=== PATIENT | female | born 1980 | race Caucasian/White ===

== ENCOUNTER 2018-09-14 08:40 | Emergency (ER) | payer MEDICAID, OTHER ==
[~2018-09-14] VITALS: Ht 172.7 cm; Wt 155.6 kg
--- NOTE | 2018-09-14 09:15 | NUR ---
seen and evaluated by Dr Lorenzo , observed pt for 30 mins and no further seizure noted so far, [facility]d back to prison
[2018-09-14 09:19] VITALS: BP 110/76
== END 2018-09-14 09:20 ==
LOC: ER 08:43
DX: R56.9 Unspecified convulsions (principal); J45.909 Unspecified asthma, uncomplicated; F31.9 Bipolar disorder, unspecified; Z98.890 Other specified postprocedural states; Z90.710 Acquired absence of both cervix and uterus
CPT/HCPCS: 99285; A4606; Z7610

== ENCOUNTER 2019-06-02 15:47 | Emergency (ER) | payer OTHER ==
[~2019-06-02] VITALS: Ht 172.7 cm; Wt 145.1 kg
--- NOTE | 2019-06-02 16:47 | NUR ---
PATIENT BIBRA39 FROM [facility] FOR WITNESSED SEIZURE. A/O X 4, VERBALLY RESPONSIVE. NO ACUTE DISTRESS. DENIES ANY PAIN OR DISCOMFORT. AMBULATORY WITH STEADY GAIT. RESTING COMFORTABLY ON BED
[2019-06-02 16:51] LABS: BASOPHILS % (AUTO) 0.4 % (0.0-2.0); EOSINOPHILS % (AUTO) 1.2 % (0.0-6.0); HEMATOCRIT 39 % (33-45); HEMOGLOBIN 13.1 g/dL (11.5-14.8); LYMPHOCYTES # (AUTO) 1.3 /CMM (0.8-4.8); LYMPHOCYTES % (AUTO) 14.4 % (20.0-44.0); MEAN CORPUSCULAR HGB CONC 34 g/dl (31.0-36.0); MEAN CORPUSCULAR VOLUME 89 fL (82-100); MONOCYTES # (AUTO) 0.6 /CMM (0.1-1.30); MONOCYTES % (AUTO) 7.1 % (2.0-12.0); NEUTROPHILS # (AUTO) 6.7 /CMM (1.8-8.9); NEUTROPHILS % (AUTO) 76.9 % (43.0-81.0); PLATELET COUNT (AUTO) 243 /CMM (150-450); RED BLOOD CELL COUNT(AUTO) 4.37 MIL/uL (4.0-5.2); WHITE BLOOD COUNT (AUTO) 8.8 K/uL (4.3-11.0)
[2019-06-02 17:02] LABS: CALCIUM, SERUM 8.4 mg/dL (8.5-10.1); CREATININE 0.8 mg/dL (0.6-1.3); POTASSIUM 3.5 mmol/L (3.5-5.1)
[2019-06-02 17:07] LABS: ALBUMIN 3.5 g/dL (3.4-5.0); BILIRUBIN,DIRECT 0.1 mg/dL (0.0-0.2); BILIRUBIN,TOTAL 0.1 mg/dL (0.2-1.0)
--- NOTE | 2019-06-02 17:31 | NUR ---
URINE COLLECTED AND SENT TO LAB
[2019-06-02 17:40] LABS: APPEARANCE,URINE Clear (CLEAR); BILIRUBIN,URINE Negative (NEGATIVE); BLOOD, URINE Negative Ery/uL (NEGATIVE); COLOR,URINE Yellow (YELLOW); KETONES,URINE Negative (NEGATIVE); LEUKOCYTE ESTERASE ,URINE Negative (NEGATIVE); NITRITE, URINE Negative (NEGATIVE); PROTEIN,URINE Negative (NEGATIVE); UGLUCOSE Negative (NEGATIVE); UROBILINOGEN,URINE 0.2 EU/dL (0.2)
[2019-06-02] MEDS: IV NS 0.9% 1,000 ML BAG IV ONE (17:52)
[2019-06-02] MEDS ORDERED: ONDANSETRON HCL/PF 4 MG/2 ML VIAL ONE (18:04)
[2019-06-02] MEDS: ONDANSETRON HCL/PF 4 MG/2 ML VIAL IV ONE (18:12)
--- NOTE | 2019-06-02 18:19 | NUR ---
PATIENT CLEARED BY DR YOUNG FOR DISCHARGE.
--- NOTE | 2019-06-02 18:35 | NUR ---
DISCHARGE INSTRUCTIONS AND EDUCATION PROVIDED TO PATIENT AND VERBALIZED UNDERSTANDING. IV REMOVED, TIP INTACT, PRESSURE DRESSING PLACED. PATIENT LEFT UNIT AMBULATORY IN STABLE CONDITION. ACCOMPANIED BY 2 [employer] OFFICERS. AWARE OF DISCHARGE
[2019-06-02 18:37] VITALS: BP 129/77
== END 2019-06-02 18:37 ==
LOC: ER 15:51
DX: G40.909 Epilepsy, unspecified, not intractable, without status epilepticus (principal); E86.0 Dehydration; J45.909 Unspecified asthma, uncomplicated; F31.9 Bipolar disorder, unspecified; E66.9 Obesity, unspecified; Z98.890 Other specified postprocedural states; Z90.710 Acquired absence of both cervix and uterus
CPT/HCPCS: 36415; 80048; 80076; 81001; 84703; 85025; 96361; 96374; 99283; J2405; J7030; 81000-TC

== ENCOUNTER 2019-12-11 11:36 | Emergency (ER) | payer MEDICAID, OTHER ==
[~2019-12-11] VITALS: Ht 172.7 cm; Wt 147.4 kg
--- NOTE | 2019-12-11 11:51 | NUR ---
"Flu like symptoms/ Cough/congestion x1mo NOT better. Homeless". To ER bed 11, hooked to monitor, provided w mask, Dr Hicks at bedside
[2019-12-11] MEDS: ALBUTEROL FS 2.5 MG/3 ML VIAL.NEB NEB ONE (12:34)
[2019-12-11] MEDS: IPRATROPIUM NEB FS 0.5 MG/2.5 ML AMPUL.NEB NEB ONE (12:34)
[2019-12-11] MEDS ORDERED: IPRATROPIUM NEB FS 0.5 MG/2.5 ML AMPUL.NEB ONE (12:38)
[2019-12-11] MEDS ORDERED: ALBUTEROL FS 2.5 MG/3 ML VIAL.NEB ONE (12:38)
[2019-12-11] MEDS ORDERED: GUAIFENESIN/D-METHORPHAN HB 5 ML UDC ONE (13:09)
[2019-12-11] MEDS: CODEINE/PROMETHAZINE HCL 5 ML UDC PO ONE (13:11)
[2019-12-11] MEDS: GUAIFENESIN/D-METHORPHAN HB 5 ML UDC PO ONE (13:13)
--- NOTE | 2019-12-11 13:13 | NUR ---
PROVIDED W FOOD TRAY, TOLERATING PO WELL.
--- NOTE | 2019-12-11 13:35 | NUR ---
Patient given written and verbal discharge instructions. Patient verbalizes understanding of instructions. Patient is ambulatory with steady gait. Refuses offer of [facility] placement. Patient given list of available shelters in surrounding area. Patient discharged in proper clothing. Signed homeless waiver form, Name band removed. All belongings with the patient.
[2019-12-11 13:36] VITALS: BP 139/90
== END 2019-12-11 13:36 | disposition home or self-care (01) ==
LOC: ER 11:45
DX: J12.9 Viral pneumonia, unspecified (principal); J45.909 Unspecified asthma, uncomplicated; F31.9 Bipolar disorder, unspecified; Z90.710 Acquired absence of both cervix and uterus; Z98.890 Other specified postprocedural states
CPT/HCPCS: 71045-TC

== ENCOUNTER 2021-03-12 10:51 | Emergency (ER) | payer OTHER ==
[~2021-03-12] VITALS: Ht 172.7 cm; Wt 105.2 kg
--- NOTE | 2021-03-12 10:51 | NUR ---
PT BIBRA 100 AND [employer] FROM [facility] C/O UNWITNESSED SEIZURE EPISODE. PT IS AAOX4, NOT IN RESPIRATORY DISTRESS, V/S STABLE, KEPT RESTED AND COMFORTABLE. WILL CONTINUE TO MONITROR.
--- NOTE | 2021-03-12 11:00 | NUR ---
SEEN AND EXMAINED BY .
[2021-03-12] MEDS ORDERED: KETOROLAC TROMETHAMINE 15 MG/ML VIAL ONE (11:17)
[2021-03-12] MEDS ORDERED: busPIRone 5 MG TABLET ONE (11:18)
[2021-03-12] MEDS ORDERED: ONDANSETRON HCL/PF 4 MG/2 ML VIAL ONE (11:18)
[2021-03-12 11:19] LABS: BASOPHILS # (AUTO) 0.1 /CMM (0.0-0.2); BASOPHILS % (AUTO) 0.6 % (0.0-2.0); EOSINOPHILS % (AUTO) 0.5 % (0.0-6.0); HEMATOCRIT 42 % (33-45); HEMOGLOBIN 13.9 g/dL (11.5-14.8); LYMPHOCYTES # (AUTO) 2.5 /CMM (0.8-4.8); LYMPHOCYTES % (AUTO) 24.1 % (20.0-44.0); MEAN CORPUSCULAR HGB CONC 33 g/dl (31.0-36.0); MEAN CORPUSCULAR VOLUME 88 fL (82-100); MONOCYTES # (AUTO) 0.7 /CMM (0.1-1.30); MONOCYTES % (AUTO) 6.7 % (2.0-12.0); NEUTROPHILS % (AUTO) 68.1 % (43.0-81.0); PLATELET COUNT (AUTO) 318 /CMM (150-450); RED BLOOD CELL COUNT(AUTO) 4.78 MIL/uL (4.0-5.2); WHITE BLOOD COUNT (AUTO) 10.3 K/uL (4.3-11.0)
--- NOTE | 2021-03-12 11:20 | NUR ---
IV LINE ESTABLISHED G20 L HAND. BLOOD DRAWN AND SENT TO LAB.
[2021-03-12] MEDS ORDERED: ONDANSETRON HCL/PF - ER 4 MG/2 ML VIAL IV ONE (11:30)
[2021-03-12] MEDS ORDERED: KETOROLAC TROMETHAMINE INJ 30 MG/ML VIAL IV ONE (11:30)
[2021-03-12] MEDS ORDERED: LEVETIRACETAM (500MG) 1,000 MG in IV NS 0.9% 100 ML IV SCH (11:30)
[2021-03-12] MEDS ORDERED: busPIRone 5 MG TABLET PO ONE (11:30)
[2021-03-12 11:43] LABS: CALCIUM, SERUM 9.1 mg/dL (8.5-10.1); CARBON DIOXIDE 22 mmol/L (21-32); CHLORIDE 105 mmol/L (98-107); CREATININE 0.7 mg/dL (0.6-1.3); GLUCOSE 99 mg/dL (74-106); POTASSIUM 3.9 mmol/L (3.5-5.1); SODIUM SERUM 138 mmol/L (136-145); UREA NITROGEN, BLOOD 13 mg/dL (7-18)
[2021-03-12 11:49] LABS: ALANINE AMINOTRANSFERASE 65 U/L (12-78); ALBUMIN 3.7 g/dL (3.4-5.0); ALCOHOL, BLOOD < 3 mg/dL (0-0); ALKALINE PHOSPHATASE 115 U/L (46-116); ASPARTATE AMINOTRANSFERASE 23 U/L (15-37); BILIRUBIN,DIRECT 0.1 mg/dL (0.0-0.2); BILIRUBIN,TOTAL 0.3 mg/dL (0.2-1.0); TOTAL PROTEIN, SERUM 8.1 g/dL (6.4-8.2)
[2021-03-12] MEDS ORDERED: ONDA4TAB11 PO (12:36)
[2021-03-12] MEDS ORDERED: IBUP-1957 PO (12:36)
[2021-03-12] MEDS ORDERED: BUSP10TA35 PO (12:36)
[2021-03-12] MEDS ORDERED: LEVE1000 PO (12:36)
[2021-03-12 12:48] VITALS: BP 128/78
--- NOTE | 2021-03-12 12:48 | NUR ---
IV removed. Catheter intact and site benign. Pressure and 4x4 applied to site. No bleeding noted. Patient discharged in custody in stable condition. Written and verbal after care instructions given. Patient verbalizes understanding of instruction.
== END 2021-03-12 12:49 ==
LOC: ER 10:53
DX: G40.909 Epilepsy, unspecified, not intractable, without status epilepticus (principal); J45.909 Unspecified asthma, uncomplicated; F31.9 Bipolar disorder, unspecified; Z98.890 Other specified postprocedural states; Z79.899 Other long term (current) drug therapy
CPT/HCPCS: 36415; 70450; 80048; 80076; 80307; 80320; 84703; 85025; 93005; 96365; 96375; 99291; J1885; J1953; J2405 ×2; J7030; G0480

== ENCOUNTER 2021-07-18 08:06 | Emergency (ER) | payer OTHER ==
[~2021-07-18] VITALS: Ht 172.7 cm; Wt 113.4 kg
[~2021-07-18 08:06] MED LIST: BUSP10TA35 PO; IBUP-1957 PO; LEVE1000 PO; ONDA4TAB11 PO
--- NOTE | 2021-07-18 08:20 | NUR ---
The patient is bibra39 [facility] detention for witnessed seizure lasting a minute. 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 The patient is alert and oriented x2. Denies pain. In room air and denies SOB. Respiration regular and unlabored. Sezire precautions taken. Attached to the monitor. Warm blanket provided for comfort. Will continue to monitor the patient.
--- NOTE | 2021-07-18 08:21 | NUR ---
STARTED IV LINE, BLOOD SPECIMEN COLLECTED AND SENT TO THE LAB
[2021-07-18] MEDS: LEVETIRACETAM (500MG) 1,000 MG in IV NS 0.9% 100 ML IV STA (08:48)
[2021-07-18] MEDS ORDERED: ACETAMINOPHEN 325 MG TABLET ONE (08:54)
[2021-07-18] MEDS ORDERED: ONDANSETRON HCL/PF 4 MG/2 ML VIAL ONE (08:54)
--- NOTE | 2021-07-18 09:01 | NUR ---
THE PATIENT IS ALERT AND ORIENTED X3. DENIES PAIN. IN ROOM AIR AND DENIES SOB. RESPIRATION REGULAR AND UNLABORED. SEIZURE PRECAUTIONS MAINTAINED. [employer] OFFICERS AT THE BEDSIDE.
[2021-07-18] MEDS: ONDANSETRON HCL/PF 4 MG/2 ML VIAL IV ONE (09:02)
[2021-07-18] MEDS: ACETAMINOPHEN 325 MG TABLET PO ONE (09:02)
[2021-07-18] MEDS: IV NS 0.9% 1,000 ML IV ONE (09:02)
[2021-07-18] MEDS ORDERED: LEVE1000 PO (09:45)
[2021-07-18] MEDS ORDERED: NALO4SPR NS (09:45)
--- NOTE | 2021-07-18 10:34 | NUR ---
The patient is alert and oriented x4. In room air and denies SOB. Respiration regular and unlabored. Denies pain. In no apparent distress. IV removed. Catheter intact and site benign. Pressure and 4x4 applied to site. No bleeding noted.Patient discharged in stable condition with [employer]. Written and verbal after care instructions given. Patient and [employer] verbalizes understanding of instruction.
[2021-07-18 10:35] VITALS: BP 122/85
--- NOTE | 2021-07-18 10:45 | NUR ---
SS consult requested for Medication Assisted Treatment resources for this 40 year old Female who was [employer] after seizure. Per EMR, pt. had recent Heroin use. Per ER, pt. is in custody and was medically cleared for DC. SW attempted to meet with pt. to provide MAT resources. However, pt. had already departed with PD. [facility]: [address] [place] [address] Intake hours: 5:45am9:00am, walk-ins Friday, Friday, [facility]: [address] [place] [address] Intake hours: 5:45am12:30pm, Friday and [facility]: [address] [place] [address] Intake hours: 8:00am2:00pm, Friday through Friday
== END 2021-07-18 10:36 ==
LOC: ER 08:11
DX: G40.909 Epilepsy, unspecified, not intractable, without status epilepticus (principal); F11.13 Opioid abuse with withdrawal; R11.2 Nausea with vomiting, unspecified; F31.9 Bipolar disorder, unspecified; E03.9 Hypothyroidism, unspecified; J45.909 Unspecified asthma, uncomplicated; Z02.89 Encounter for other administrative examinations; Z90.710 Acquired absence of both cervix and uterus; Z98.890 Other specified postprocedural states; Z79.899 Other long term (current) drug therapy
CPT/HCPCS: 96365; 96375; 99284; J1953; J2405; J7030